=== PATIENT | female | born 1990 | race Caucasian/White ===

== ENCOUNTER → 2023-12-07 08:06 | Outpatient (REF) | payer OTHER, SELFPAY | LOC: PNTC 08:06 | PROVIDERS: ATTENDING PHYSICIAN Obstetrics & Gynecology | DX: Z36.0 Encounter for antenatal screening for chromosomal anomalies (principal); Z36.82 Encounter for antenatal screening for nuchal translucency | CPT/HCPCS: 36415; 76801; 76813 ==

== ENCOUNTER → 2024-01-31 08:18 | Outpatient (REF) | payer OTHER, SELFPAY | LOC: PNTC 08:18 | PROVIDERS: ATTENDING PHYSICIAN Obstetrics & Gynecology | DX: O35.5XX0 Maternal care for (suspected) damage to fetus by drugs, not applicable or unspecified (principal); O09.529 Supervision of elderly multigravida, unspecified trimester; O34.219 Maternal care for unspecified type scar from previous cesarean delivery; Z87.59 Personal history of other complications of pregnancy, childbirth and the puerperium; O99.612 Diseases of the digestive system complicating pregnancy, second trimester | CPT/HCPCS: 76811 ==

== ENCOUNTER → 2024-03-13 13:19 | Outpatient (REF) | payer OTHER, SELFPAY | LOC: PNTC 13:19 | PROVIDERS: ATTENDING PHYSICIAN Obstetrics & Gynecology | DX: O09.529 Supervision of elderly multigravida, unspecified trimester (principal); O34.219 Maternal care for unspecified type scar from previous cesarean delivery | CPT/HCPCS: 76816 ==

== ENCOUNTER → 2024-04-24 08:12 | Outpatient (REF) | payer OTHER, SELFPAY | LOC: PNTC 08:12 | PROVIDERS: ATTENDING PHYSICIAN Obstetrics & Gynecology | DX: O09.529 Supervision of elderly multigravida, unspecified trimester (principal); O34.219 Maternal care for unspecified type scar from previous cesarean delivery; O36.5920 Maternal care for other known or suspected poor fetal growth, second trimester, not applicable or unspecified; O99.612 Diseases of the digestive system complicating pregnancy, second trimester | CPT/HCPCS: 76816 ==

== ENCOUNTER 2024-05-04 20:54 | Observation (INO) | payer OTHER, SELFPAY ==
[2024-05-04 21:25] VITALS: BP 141/88; BMI 29.9
[2024-05-04 21:46] LABS: Urine Albumin Negative (Neg - Trace); Urine Bilirubin Negative (Negative); Urine Character Clear (Clear); Urine Color Straw; Urine Glucose Negative (Negative); Urine Ketone Trace (Negative); Urine Leukocyte Negative (Negative); Urine Nitrite Negative (Negative); Urine Occult Blood Negative (Negative); Urine Specific Gravity 1.015 (<1.030); Urine Urobilinogen Negative (Neg - 1+)
[2024-05-04 22:03] LABS: % Basophils 0.3 % (0-2); % Eosinophils 1.1 % (0-6); % Immature Granulocytes 0.9 % (0-0.5); % Lymphocytes 16.8 % (20.5-51.1); % Monocytes 7.4 % (1.7-9.3); % Neutrophils 73.5 % (42.2-75.2); Absolute Eosinophils 0.2 10^3/uL (0-0.7); Absolute Immature Granulocytes 0.1 10^3/uL (0-0.05); Absolute Lymphocytes 2.4 10^3/uL (1.2-3.4); Absolute Monocytes 1.1 10^3/uL (0.1-0.6); Absolute Neutrophils 10.5 10^3/uL (1.4-6.5); Hematocrit 34.4 % (37.0-47.0); Hemoglobin 12.3 g/dL (12.0-16.0); Mean Corp Hgb Conc. 35.8 g/dL (33.0-37.0); Mean Corpuscular Hgb 28.9 pg (27.0-31.0); Mean Corpuscular Volume 80.8 fL (81.0-99.0); Mean Platelet Volume 9.1 fL (7.4-10.4); Nucleated Red Blood Cells % 0 %; Platelet Count 315 10^3/uL (130-400); Red Blood Cell Count 4.26 10^6/uL (4.20-5.40); Red Cell Dist. Width 12.7 % (11.5-14.5); White Blood Cell Count 14.3 10^3/uL (4.8-10.8)
== END 2024-05-05 09:57 | disposition home or self-care (01) ==
LOC: LDRP 20:54
PROVIDERS: ADMITTING PHYSICIAN Obstetrics & Gynecology; FAMILY PHYSICIAN Family Medicine
DX: O46.93 Antepartum hemorrhage, unspecified, third trimester (principal); Z3A.33 33 weeks gestation of pregnancy; R10.9 Unspecified abdominal pain; O99.613 Diseases of the digestive system complicating pregnancy, third trimester; K50.90 Crohn's disease, unspecified, without complications; O99.343 Other mental disorders complicating pregnancy, third trimester; F41.9 Anxiety disorder, unspecified; G43.909 Migraine, unspecified, not intractable, without status migrainosus; Z87.442 Personal history of urinary calculi; Z88.2 Allergy status to sulfonamides; Z88.8 Allergy status to other drugs, medicaments and biological substances; Z88.5 Allergy status to narcotic agent; Z91.013 Allergy to seafood
CPT/HCPCS: 76815; 81003; 82731; 85025; 85460; 86850; 86900; 86901; 87077; 87086; 87147; G0378

== ENCOUNTER 2024-05-05 20:30 | Inpatient (IN) | payer OTHER, SELFPAY ==
[2024-05-05 20:56] VITALS: BP 143/74; BMI 29.9
[2024-05-05 21:24] LABS: Hematocrit 38.3 % (37.0-47.0); Hemoglobin 13.1 g/dL (12.0-16.0); Mean Corp Hgb Conc. 34.2 g/dL (33.0-37.0); Mean Corpuscular Hgb 29.2 pg (27.0-31.0); Mean Corpuscular Volume 85.3 fL (81.0-99.0); Mean Platelet Volume 9.4 fL (7.4-10.4); Platelet Count 324 10^3/uL (130-400); Red Blood Cell Count 4.49 10^6/uL (4.20-5.40); Red Cell Dist. Width 12.7 % (11.5-14.5); White Blood Cell Count 12.1 10^3/uL (4.8-10.8)
--- NOTE | 2024-05-05 21:37 | CON.NEO ---
Consultation
-
Date/Time Consultation Requested: 05/05/24 at 2130
Date/Time Consultation Performed: 05/05/24 at 2130
Requesting Provider: Dr. Lizarraga
Performing Provider: Dr. Edwards
Reason for Consultation: PROM, premature delivery
Consultation - Neonatology
Maternal Labs
Blood Type: A Positive
Antibody Screen: Negative
RPR: Nonreactive
Rubella: Immune
Hep B S Ag: Negative
Hep C: Negative
HIV: Nonreactive
Group B Strep: Unknown
Chlamydia/GC: Negative
Consult
Points discussed at consult:
- Management at delivery including the possibility of CPAP/intubation/surfactant discussed
- Respiratory: RDS possibility with possibility of worsening for 24-48 hrs, management including CPAP/surfactant/ventilator support may be required
- Nutrition: Hypoglycemia, need for IV fluids, gradual feed advance, Gavage feeding, importance of colostrum feeding, initiation of expression of colostrum within 3-4 hours, availability of donor milk, safety fo donor milk etc. were discussed. Mom
signed consent for donor BM, has plans to breastfeed and was encouraged to pump as soon as possible. She also has a history of overproduction with her 2 year old so is hopeful to have minimal need for donor BM.
- Procedures: Intubation, CPAP, IV placement, blood tests, umbilical arterial or venous lines, gavage feedings were discussed
- [facility]: possibility of PDA not discussed in detail at this time
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
- Jaundice possibility and need for phototherapy discussed
- Family Centered Care: Discussed FCC with emphasis on parental participation during sign off and during management rounds and is encouraged. Availability of nany eyes camera also discussed, parents are well aware of this as their 2 year old
required NICU stay for 4 days due to IUGR.
- COVID-19: Visitation policy, modifications related to COVID-19, ever changing guidelines were discussed
Mom and Dad were given the opportunity to ask questions throughout and open invitation to call if any questions come as they absorb all the information given so far.
Face to Face Time
Total [id number]-[id number] Time (in Minutes): 30
Digitizer
[2024-05-05] MEDS: ANCEF 10 IV (21:53)
[2024-05-05] MEDS: BICITRA 30 ML PO (21:53)
[2024-05-05] MEDS: ZITHROMAX INFUSION 250 IV (21:53)
[2024-05-05] MEDS: TYLENOL 1000 MG PO (21:53)
[2024-05-05 21:55] LABS: ALT (SGPT) 11 U/L (0-35); AST (SGOT) 22 U/L (14-36); Albumin 3.8 g/dl (3.5-5.0); Alkaline Phosphatase 152 U/L (38-126); Blood Urea Nitrogen 8 mg/dl (7-17); Calcium 10.1 mg/dl (8.4-10.2); Carbon Dioxide 19 mmol/L (22-30); Chloride 103 mmol/L (98-107); Estimated Creatinine Clearance > 125 ml/min; Glucose 129 mg/dl (70-99); Potassium 4.1 mmol/L (3.5-5.1); Sodium 137 mmol/L (135-145); Total Bilirubin 0.9 mg/dl (0.2-1.3); eGFR > 60.00
[2024-05-05 22:32] LABS: Protein/creatinine Ratio 0.6; Urine Protein 26 mg/dl
[2024-05-05 23:05] LABS: B.E. Cord ABG -3.6 mMOL/L; Cord ABG Comment CORD BLOOD; HCO3 Cord ABG 24.3 mmol/L; O2 Saturation % Cord ABG 30.2 %; PCO2 Cord ABG 53 mmHg; PO2 Cord ABG 15 mmHg; pH Cord ABG 7.27
[2024-05-05 23:10] LABS: B.E. Cord ABG -3.3 mMOL/L; HCO3 Cord ABG 25.4 mmol/L; O2 Saturation % Cord ABG 12.7 %; PCO2 Cord ABG 58 mmHg; PO2 Cord ABG 7 mmHg; pH Cord ABG 7.25
[2024-05-06 00:20] LABS: Protein/creatinine Ratio 0.3; Urine Protein 27 mg/dl
[2024-05-06] MEDS: DILAUDID 0.25 MG IV ×2 (00:46→01:24)
[2024-05-06] MEDS: PERCOCET 5/325 1 TABLET PO ×2 (03:02→06:54)
[2024-05-06 06:09] LABS: Hematocrit 32.8 % (37.0-47.0); Hemoglobin 11.2 g/dL (12.0-16.0); Mean Corp Hgb Conc. 34.1 g/dL (33.0-37.0); Mean Corpuscular Hgb 28.4 pg (27.0-31.0); Mean Platelet Volume 9.1 fL (7.4-10.4); Platelet Count 295 10^3/uL (130-400); Red Blood Cell Count 3.95 10^6/uL (4.20-5.40); Red Cell Dist. Width 12.7 % (11.5-14.5); White Blood Cell Count 19.8 10^3/uL (4.8-10.8)
[2024-05-06] MEDS: PRENATAL PLUS 1 TABLET PO (07:44)
[2024-05-06] MEDS: DILAUDID 2 MG PO ×3 (11:15→17:15)
[2024-05-06] MEDS: SENOKOT-S 1 TABLET PO (15:13)
--- NOTE | 2024-05-06 20:38 | W.PN.ANS.POP ---
Anesthesia Post Operative
- Anesthesia Post Op Note
Vital Signs Stable-See Nursing Note: Yes
Airway Patent: Yes
Adequate Pain Control: Yes
Change in Mental Status: No
Current Postoperative Nausea & Vomiting: No
Anesthesia Complications: No
General Anesthetic Recall: No
Unplanned Admission: No
Post Op Hydration Adequate: Yes
[2024-05-06] MEDS: DILAUDID 4 MG PO (21:18)
[2024-05-07] MEDS: DILAUDID 4 MG PO ×3 (01:18→09:16)
[2024-05-07] MEDS: SENOKOT-S 1 TABLET PO (08:23)
[2024-05-07] MEDS: PRENATAL PLUS 1 TABLET PO (08:23)
[2024-05-07] MEDS: PEPCID 10 MG PO (08:23)
[2024-05-07] MEDS: MYLICON 80 MG PO ×2 (13:13→17:15)
[2024-05-07] MEDS: PERCOCET 5/325 2 TABLET PO ×3 (13:17→21:13)
[2024-05-08] MEDS: PERCOCET 5/325 2 TABLET PO ×5 (01:07→19:49)
[2024-05-08] MEDS: SENOKOT-S 1 TABLET PO (08:58)
[2024-05-08] MEDS: PRENATAL PLUS 1 TABLET PO (08:58)
[2024-05-08] MEDS: PEPCID 10 MG PO (08:58)
[2024-05-09] MEDS: PERCOCET 5/325 2 TABLET PO ×3 (03:28→13:10)
[2024-05-09] MEDS: PEPCID 10 MG PO (08:10)
[2024-05-09] MEDS: PRENATAL PLUS 1 TABLET PO (08:12)
[2024-05-09] MEDS: SENOKOT-S 1 TABLET PO (08:17)
--- NOTE | 2024-05-09 13:13 | W.DS.TRANS ---
DC Summary - [facility]
-
Discharge Instructions:
Discharge Diagnosis/Procedures section
Instructions:
Stand-Alone Forms: LDRP Delivery
Changes to Home Medications: No
Discharge Medications:
DC Medications w/original date entered in [email or web address]
famotidine 10 mg tablet (Pepcid AC) 10 mg PO DAILY Gastrointestinal Issue 05/04/24
prenat.vits,doris,iiy-eurv-tuacw 1 tab PO DAILY Supplement 05/04/24
acetaminophen 325 mg tablet 650 mg (2 x 325 mg) PO Q4HPRN PRN mild pain #0 tabs 05/08/24
oxycodone-acetaminophen 5 mg-325 mg tablet 1 tab PO Q4HPRN PRN moderate pain #12 tabs 05/08/24
sennosides 8.6 mg-docusate sodium 50 mg tablet 1 tab PO DAILYPRN PRN constipation #0 tabs 05/08/24
simethicone 80 mg chewable tablet 80 mg PO TIDPRN PRN flatulence #0 tabs 05/08/24
Home Medication Changes
Pending Results: No
[2024-05-09 15:43] LABS: Syphilis/T. pallidum Ab Reflex Negative (Negative)
== END 2024-05-09 15:24 | disposition home or self-care (01) | DRG 787 ==
LOC: LDRP 20:30
PROVIDERS: ADMITTING PHYSICIAN Obstetrics & Gynecology; ATTENDING PHYSICIAN Obstetrics & Gynecology; FAMILY PHYSICIAN Family Medicine
PROC: 10D00Z1 Extraction of Products of Conception, Low, Open Approach (ICD-10-PCS; 2024-05-05)
DX: O34.211 Maternal care for low transverse scar from previous cesarean delivery (principal); K50.90 Crohn's disease, unspecified, without complications; O99.344 Other mental disorders complicating childbirth; F41.9 Anxiety disorder, unspecified; O99.62 Diseases of the digestive system complicating childbirth; O42.913 Preterm premature rupture of membranes, unspecified as to length of time between rupture and onset of labor, third trimester; O99.892 Other specified diseases and conditions complicating childbirth; R03.0 Elevated blood-pressure reading, without diagnosis of hypertension; O99.893 Other specified diseases and conditions complicating puerperium; M54.9 Dorsalgia, unspecified; R05.9 Cough, unspecified; Z3A.34 34 weeks gestation of pregnancy; Z37.0 Single live birth; Z79.899 Other long term (current) drug therapy; Z88.8 Allergy status to other drugs, medicaments and biological substances
CPT/HCPCS: 88307; 80053; 82570; 82803; 84156; 85027; 86780; 86850; 86900; 86901; 87070; 87077; 87147; 93971

== ENCOUNTER → 2024-05-16 12:54 | Outpatient (REF) | payer OTHER, SELFPAY | LOC: WDC 12:54 | PROVIDERS: ATTENDING PHYSICIAN Obstetrics & Gynecology; FAMILY PHYSICIAN Family Medicine | DX: N63.31 Unspecified lump in axillary tail of the right breast (principal); N63.32 Unspecified lump in axillary tail of the left breast | CPT/HCPCS: 76642 ==

== ENCOUNTER 2024-07-15 14:30 | Observation (INO) | payer OTHER, SELFPAY ==
[2024-07-15 09:27] VITALS: BP 128/91
[2024-07-15 09:53] VITALS: BMI 27.7
[2024-07-15] MEDS: NSS 500 IV (09:59)
[2024-07-15] MEDS: DILAUDID 0.5 MG IV ×4 (10:00→15:55)
[2024-07-15] MEDS: TORADOL 15 MG IV ×2 (10:00→12:57)
[2024-07-15 10:03] LABS: % Basophils 0.4 % (0-2); % Eosinophils 2.1 % (0-6); % Immature Granulocytes 0.3 % (0-0.5); % Lymphocytes 27.2 % (20.5-51.1); % Monocytes 6.8 % (1.7-9.3); % Neutrophils 63.2 % (42.2-75.2); Absolute Eosinophils 0.2 10^3/uL (0-0.7); Absolute Lymphocytes 2.5 10^3/uL (1.2-3.4); Absolute Monocytes 0.6 10^3/uL (0.1-0.6); Absolute Neutrophils 5.8 10^3/uL (1.4-6.5); Hematocrit 41.2 % (37.0-47.0); Hemoglobin 13.7 g/dL (12.0-16.0); Mean Corp Hgb Conc. 33.3 g/dL (33.0-37.0); Mean Corpuscular Hgb 27.3 pg (27.0-31.0); Mean Corpuscular Volume 82.2 fL (81.0-99.0); Mean Platelet Volume 8.2 fL (7.4-10.4); Nucleated Red Blood Cells % 0 %; Platelet Count 320 10^3/uL (130-400); Red Blood Cell Count 5.01 10^6/uL (4.20-5.40); Red Cell Dist. Width 14.3 % (11.5-14.5); White Blood Cell Count 9.2 10^3/uL (4.8-10.8)
[2024-07-15 10:20] LABS: HCG, Serum Qualitative Screen Negative
--- NOTE | 2024-07-15 10:26 | ED.GENMED ---
History of Present Illness
General
Chief Complaint: Musculo-Skeletal Complaint
Source: patient and family
Exam Limitations: none
Time Seen by Provider: 07/15/24 09:38
History of Present Illness
History of Present Illness:
34-year-old female complaining of left posterior neck pain with shooting pain down the left arm. Started 5 days ago. No trauma. Patient is 10 weeks and had some mild left-sided neck pain at times while sleeping on the couch but
relatively brief. Did have chiropractic manipulation x 2 this week. No unusual headache vomiting photophobia or other neurologic symptoms. Very positional in nature.
Past History
Past History
ED Past Medical History: Hyperthyroidism, Other (Migraines, Crohn's disease, kidney stones, ovarian cyst) and Other (Crohn's disease, kidney stones, ovarian cyst, UTIs, tonsil and adenoidectomy, rectal fissure at distal repair, small bowel
resection for Crohn's)
ED Past Surgical History: Bowel resection (11 inches from small bowel and 2 inches from large bowel) and Other; Negative Appendectomy
Social History
Tobacco: Non-smoker
Alcohol: None
Drug: None
Personal: Single
Living: with family
Employment: Employed
Family History
Family History: CAD
Review of Systems
Review of Systems
All Other Systems: Not applicable
Constitutional: Denies fever or chills
Neurological: Denies weakness
Phy Exam
Physical Exam
Physical Exam:
GENERAL: Alert and oriented in no apparent distress, sitting up on the side of the bed. Does appear uncomfortable however. Self splinting the neck. Holding the neck slightly angulated
EYE: Orbits normal.
NECK: Decreased lateral rotation and left posterior paracervical tenderness.
ENT: Pharynx without erythema
CARDIAC: Regular rate and rhythm
LUNGS: No respiratory distress
NEUROLOGICAL: Alert and oriented , hearth feeder normal. Interosseous intact. Light touch intact. Lower extremity strength normal
SKIN: Warm and dry
PSYCH: Normal and appropriate interaction.
Course
Orders/Labs/Results
Orders:
Orders
07/15/24 09:48
IV Insert/Care/Rem.- Treatment PRN
0.9% Sodium Chloride 500 ml [Nss] 500 ml IV BOLUS
Ketorolac [Toradol] 15 mg IV NOW STA
07/15/24 09:50
Test Result ONCE
07/15/24 09:51
CT Neck Angio W/wo Iv Contrast Urgent
Comment:
Reason For Exam: Neck pain/chiropractic manipulation
HYDROmorphone [Dilaudid] 0.5 mg IV NOW STA
07/15/24 09:57
Basic Metabolic Panel Urgent
Complete Blood Count/With Diff Urgent
HCG, Serum Qualitative Screen Urgent
07/15/24 11:24
HYDROmorphone [Dilaudid] 0.5 mg IV NOW STA
07/15/24 12:38
Electrocardiogram (*1) Stat
Reason for Study: Other
Other Reason for Exam: chest pain
EKG- Treatment ONCE
CXR2 [CR Chest - 2 Views ] Urgent
Comment:
Reason For Exam: left upper back pain
07/15/24 12:39
Ketorolac [Toradol] 15 mg IV NOW STA
07/15/24 13:43
HYDROmorphone [Dilaudid] 0.5 mg .ROUTE .STK-MED ONE
HYDROmorphone [Dilaudid] 0.5 mg IV NOW STA
07/15/24 14:22
Admit/Transfer Patient As Directed
Co-Sign Provider:
Level of Care: Observation services
Assign to:: Medical/Surgical
Physician / Group: anish
Diagnosis: cervical radiculopathy
Code Status As Directed
Resuscitation Status: Full Code
PRN Pain Medication Management As Directed
May give lesser potent ordered pain med per pt: Yes
preference::
Protocol:: Medication orders for pain may be administered in a
manner that supports deferring to patient preference
when the pt is:
- Requesting an ordered lesser potent pain medication.
Least to most potent pain medications are defined
as: acetaminophen < NSAID < tramadol < opioids
(morphine, oxycodone, hydromorphone).
- Requesting a lesser dose of the same medication IF
ORDERED.
- Requesting a less intrusive route of administration
if both routes are prescribed by the provider (PO <
IV).
07/15/24 Dinner
Regular
At Your Request: Full Participation
07/15/24 15:49
Acetaminophen [Tylenol] 1,000 mg PO Q6HPRN PRN
Cyclobenzaprine HCl [Flexeril] 5 mg PO Q8HPRN PRN
Oxycodone [Roxicodone] 5 mg PO Q4HPRN PRN
07/15/24 15:49
Activity As Directed
Activity Level: As Tolerated
Pneumatic Compression Sleeves As Directed
Type: Knee high
Vital Signs As Directed
Frequency: Per unit guidelines
Ot Eval And Treat Routine
PT Consult [Pt Eval And Treat] Routine
Activity Level: As Tolerated
DX Deep Vein Thrombosis Video Routine
07/15/24 15:56
Prednisone [Deltasone] 60 mg PO DAILY
07/16/24 05:54
Complete Blood Count/With Diff IN AM
Comprehensive Metabolic Panel IN AM
07/16/24 08:00
MULTIPLE VITAMIN w/FE [ Plus] 1 tablet PO DAILY
Abnormal Lab Results
07/15/24
09:57
Chloride 108 H mmol/L
(98-107)
Carbon Dioxide 18 L mmol/L
(22-30)
BUN 18 H mg/dl
(7-17)
07/15/24 09:57
07/15/24 09:57
Vital Signs
Initial and Last Documented VS:
Initial Vital Signs
Temp Pulse Resp BP Pulse Ox
98.5 F 77 18 128/91 98
07/15/24 09:27 07/15/24 09:27 07/15/24 09:27 07/15/24 09:27 07/15/24 09:27
Last Documented Vital Signs
Temp Pulse Resp BP Pulse Ox
97.8 F 59 14 113/63 97
07/16/24 07:42 07/16/24 07:42 07/16/24 07:42 07/16/24 07:42 07/16/24 07:42
MDM/Problems Addressed
Differential Diagnosis Includes:
34-year-old female nontraumatic left-sided neck pain with radiculopathy like symptoms. Most consistent with nerve impingement. However no acute weakness. But because of the chiropractic vein ablation, we will pursue CT angio of the neck.
Symptomatic treatment and pain management.
*Radiology
Radiology exam reviewed: preliminary read by ED provider (Negative x-ray) and radiology read reviewed (Angiography negative. Degenerative changes C5-C6 c7)
*Pulse Oximetry
Patient hypoxic: no
*EKG
Interpreted by ED Provider?: Yes
Comparison EKG: changes noted
Heart Rate: 55
Rate: bradycardiac
Rhythm: sinus and sinus arrhythmia
[place]: normal axis
Interval: normal interval
QRS Pattern: normal QRS
Ischemia: no ischemia
*Critical Care Note
Total Time (30-74mins, 75-104mins- exclusive of procedures): Not Applicable
Data Reviewed
Review of Other/Old Records Reveals: Labs, Records and Testing
ED Attending Note
-
Portions of this chart may have been created with voice recognition software.� Occasional wrong word or��sound alike� substitutions may have occurred due to the inherent limitations of voice recognition software.
Discharge Plan
Departure
Patient Disposition: Admit
Date of Disposition: 07/15/24
Time of Disposition: 14:12
Presentation/result/management discussed w/ accepting MD/DO: Hospitalist
Discharge Problem:
Intractable pain, Intractable suspect cervical radiculopat
Interventions
Interventions:
*Risk Screen - Suicide Last Done: 07/15/24 16:43
*General Assessment Last Done: 07/15/24 09:27
*Neglect/Abuse Screening Last Done: 07/15/24 09:27
ED- Fall Risk Assessment Last Done: 07/15/24 09:53
*ED COVID-19 Vaccine History Last Done: 07/15/24 16:43
*Nursing Disposition Last Done: 07/15/24 15:38
ED-Musculoskeletal Assessment Last Done: 07/15/24 09:53
Discharge Date and Time
Discharge Date/Time: 07/15/24 15:40
[2024-07-15 10:28] LABS: Blood Urea Nitrogen 18 mg/dl (7-17); Carbon Dioxide 18 mmol/L (22-30); Chloride 108 mmol/L (98-107); Estimated Creatinine Clearance 107 ml/min; Glucose 86 mg/dl (70-99); Potassium 4.1 mmol/L (3.5-5.1); Sodium 143 mmol/L (135-145); eGFR > 60.00
[2024-07-15 11:28] VITALS: BP 130/79
[2024-07-15 12:00] VITALS: BP 116/69
[2024-07-15 14:00] VITALS: BP 132/86
--- NOTE | 2024-07-15 14:28 | HPS.HSE ---
Family Physician
-
Family Physician: Kwasi Beltran
Chief Complaint
-
back pain
History of Present Illness
34-year-old female past medical history of hypothyroidism, Crohn's disease status post small bowel resection, migraines, kidney stones, gestational hypertension, rectal fissure, ovarian cyst, anxiety, eczema presenting for sharp left posterior upper
back pain shooting down the left arm to her 1st through 3rd fingers associate with tingling and weakness the fingers. Pain started 5 days ago. She is 10 weeks and has been carrying the baby a lot. She had similar symptoms with her
prior child. She denies any trauma. She has been sleeping on the couch.
She has been taking Tylenol and ibuprofen for pain although ibuprofen irritates her stomach due to history of Crohn's disease. She was started on Medrol Dosepak 4 days ago. She did take a dose of Flexeril which did not help.
She had chiropractic manipulation times this week without improvement.
Patient denies smoking or alcohol use.
Medical History
Past Medical History
Past Medical History: Reports Other ( hypothyroidism, Crohn's disease status post small bowel resection, migraines, kidney stones, gestational hypertension, rectal fissure, ovarian cyst, anxiety, eczema)
Past Surgical History: Reports Other ( Bowel resection (11 inches from small bowel and 2 inches from large bowel))
Social History
Tobacco: Non-smoker
Alcohol: None
Drug: None
Family History
Family History: Not pertinent
Allergies / Home Medications
Allergies reflects when Allergies were last updated in [employer].
Home Medications with original date entered in [employer]
Allergy/Medication List:
Allergies
Allergy/AdvReac Type Severity Reaction Status Date / Time
infliximab [From Remicade] Allergy hives, Verified 07/15/24 09:27
rash,
joint
swelling
morphine [Morphine] Allergy Hives at Verified 07/15/24 09:27
IV site
naproxen [From Naprosyn] Allergy contraindicated Verified 07/15/24 09:27
because of
Crohn's
prochlorperazine edisylate Allergy THROAT Verified 07/15/24 09:27
[From Compazine] CLOSES
rizatriptan benzoate Allergy HTN, chest Verified 07/15/24 09:27
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
pain
Shellfish *RETIRED-05/31/12 Allergy Anaphylaxis Verified 07/15/24 09:27
[Shellfish]
sulfamethoxazole Allergy Hives Verified 07/15/24 09:27
[From Bactrim]
trimethoprim [From Bactrim] Allergy Hives Verified 07/15/24 09:27
Home Medications
1 tab PO DAILY 07/15/24
ibuprofen 200 mg tablet (Advil) 400 mg PO Q6HPRN PRN mild pain 07/15/24
Review of Systems
-
History Source: Patient
A 12 point ROS was completed and negative except as noted: Yes
Constitutional: Reports No Symptoms
EENT: Reports No Symptoms
Respiratory: Reports No Symptoms
Cardiac: Reports No Symptoms
Abdomen/GI: Reports No Symptoms
: Reports No Symptoms
Musculoskeletal: Reports No Symptoms
Skin: Reports No Symptoms
Neurological: Reports No Symptoms
Endocrine: Reports No Symptoms
Hematologic/Lymphatic: Reports No Symptoms
Psych: Reports No Symptoms
Physical Exam
Vital Signs
Vital Signs
Temp Pulse Resp BP Pulse Ox
98.5 F 63 9 116/69 97
07/15/24 09:27 07/15/24 12:15 07/15/24 12:15 07/15/24 12:00 07/15/24 12:15
Physical Exam
General: Well Developed, Well Nourished and No Apparent Distress
HEENT: NormoCephalic, Moist mucous membranes and Atraumatic
Respiratory: Clear
Cardiac: S1/S2 and Regular Rhythm; No Murmur or Rub
GI: Soft, Non Tender, Non Distended and Normal Bowel Sounds; No Organomegaly
Rectal: Deferred by Provider
Musculoskeletal: No Clubbing, No Cyanosis and No Edema
Skin: No Rash
Neuro: Nonfocal/grossly intact
Laboratory Results
-
07/15/24 09:57
07/15/24 09:57
Data Reviewed
-
Lab Data: Labs Reviewed by me
Old Records: Reviewed
Impression/Plan
-
IMPRESSION:
PLAN:
# Left sided cervical radiculopathy secondary to C5-C6 spinal stenosis triggered by /holding baby
-CTA neck otherwise unremarkable
-Ketorolac, Dilaudid given in ER
-Switch Medrol Dosepak to prednisone 60 mg for 5 days followed by taper
-Tylenol for mild pain, oxycodone for severe pain and try to avoid ibuprofen due to history of Crohn's disease and steroids
-Flexeril as needed
-PT/OT
Hypothyroidism
Crohn's disease status post bowel resection
History of migraine
History of kidney stones
Gestational hypertension
History of rectal fissure
Ovarian cyst
Anxiety
Eczema
Full code
DVT prophylaxis�SCDs
Regular diet
[2024-07-15 16:03] VITALS: BP 135/85
[2024-07-15] MEDS: TYLENOL 1000 MG PO ×2 (16:40→23:10)
[2024-07-15] MEDS: ROXICODONE 5 MG PO (16:41)
[2024-07-15] MEDS: DELTASONE 60 MG PO (17:07)
[2024-07-15] MEDS: FLEXERIL 5 MG PO (18:17)
[2024-07-15] MEDS: DILAUDID 1 MG IV ×2 (18:58→22:58)
[2024-07-15 23:06] VITALS: BP 106/60
[2024-07-16] MEDS: FLEXERIL 5 MG PO ×2 (01:17→10:12)
[2024-07-16] MEDS: TORADOL 15 MG IV (01:58)
[2024-07-16] MEDS: DILAUDID 1 MG IV ×2 (02:18→06:24)
[2024-07-16] MEDS: TYLENOL 1000 MG PO ×2 (05:56→11:53)
[2024-07-16 06:35] LABS: % Basophils 0.2 % (0-2); % Immature Granulocytes 0.9 % (0-0.5); % Lymphocytes 13.3 % (20.5-51.1); % Monocytes 3.8 % (1.7-9.3); % Neutrophils 81.8 % (42.2-75.2); Absolute Immature Granulocytes 0.1 10^3/uL (0-0.05); Absolute Lymphocytes 1.4 10^3/uL (1.2-3.4); Absolute Monocytes 0.4 10^3/uL (0.1-0.6); Absolute Neutrophils 8.7 10^3/uL (1.4-6.5); Hematocrit 38.4 % (37.0-47.0); Hemoglobin 12.9 g/dL (12.0-16.0); Mean Corp Hgb Conc. 33.6 g/dL (33.0-37.0); Mean Corpuscular Hgb 28.5 pg (27.0-31.0); Mean Platelet Volume 8.6 fL (7.4-10.4); Nucleated Red Blood Cells % 0 %; Platelet Count 324 10^3/uL (130-400); Red Blood Cell Count 4.52 10^6/uL (4.20-5.40); Red Cell Dist. Width 14.1 % (11.5-14.5); White Blood Cell Count 10.6 10^3/uL (4.8-10.8)
[2024-07-16 07:03] LABS: ALT (SGPT) 27 U/L (0-35); AST (SGOT) 22 U/L (14-36); Albumin 4.1 g/dl (3.5-5.0); Alkaline Phosphatase 88 U/L (38-126); Blood Urea Nitrogen 16 mg/dl (7-17); Calcium 9.7 mg/dl (8.4-10.2); Carbon Dioxide 20 mmol/L (22-30); Chloride 108 mmol/L (98-107); Estimated Creatinine Clearance 122 ml/min; Glucose 99 mg/dl (70-99); Potassium 4.6 mmol/L (3.5-5.1); Sodium 142 mmol/L (135-145); Total Bilirubin 1.3 mg/dl (0.2-1.3); eGFR > 60.00
[2024-07-16 07:42] VITALS: BP 113/63
[2024-07-16] MEDS: PRENATAL PLUS 1 TABLET PO (08:15)
[2024-07-16] MEDS: DELTASONE 60 MG PO (08:15)
[2024-07-16] MEDS: ROXICODONE 10 MG PO (08:43)
--- NOTE | 2024-07-16 10:24 | CM ---
CM reviewed chart and PT recs. Pt from home w/spouse and dependent children. Iw/AMB and ADLs at baseline and has no skilled discharge planning needs noted at this time. Family to transport when medically cleared.
Pt is clear to dc from a CM/SW standpoint.
--- NOTE | 2024-07-16 10:30 | W.PN.HOSP.TC ---
Addendum entered and electronically signed by Eileen Ford MD 07/16/24 12:46:
Total DC time 40 minutes
Original Note:
Today's Communication/Plan
-
see A/P
Assessment / Plan
Assessment / Plan
HPI: 34-year-old female past medical history of hypothyroidism, Crohn's disease status post small bowel resection, migraines, kidney stones, gestational hypertension, rectal fissure, ovarian cyst, anxiety, eczema; presented for sharp left posterior
upper back pain shooting down the left arm to her 1st through 3rd fingers associate with tingling and weakness the fingers. 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 She is 10 weeks and has been carrying the baby a lot. She had similar symptoms with her
prior child. She denies any trauma. She has been sleeping on the couch.
She has been taking Tylenol and ibuprofen for pain although ibuprofen irritates her stomach due to history of Crohn's disease. 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 She did take a dose of Flexeril which did not help.
She had chiropractic manipulation several times without improvement.
Patient denies smoking or alcohol use.
A/P:
# Left sided cervical radiculopathy secondary to C5-C6 spinal stenosis triggered by /holding baby
CTA neck otherwise unremarkable
s/p Ketorolac, Dilaudid given in ER
Switch Medrol Dosepak to prednisone, will discharge with 40 mg with taper
Cont Tylenol for mild pain informed to take ATC, oxycodone for severe pain.
Pt declined ibuprofen due to history of Crohn's disease
Change Flexeril to tizanidine PRN (pt reports Flexeril is ineffective)
Informed she can try trial of lidocaine gel, Salonpas and massage gun to relieve muscle tension
PT/OT: no skilled needed
# Hypothyroidism
# Crohn's disease status post bowel resection
# History of migraine
# History of kidney stones
# Gestational hypertension
# History of rectal fissure
# Ovarian cyst
# Anxiety
# Eczema
Full code
DVT prophylaxis�SCDs
Regular diet
DW RN
Anticipated Discharge: Today
Subjective/Interval History
-
Date of Service: July 16, 2024
Objective Data
-
Labs:
Laboratory Results
07/16/24
05:54
WBC 10.6
Hgb 12.9
Hct 38.4
Plt Count 324
Sodium 142
Potassium 4.6
Chloride 108 H
Carbon Dioxide 20 L
BUN 16
Creatinine 0.7
Glucose 99
Calcium 9.7
Total Bilirubin 1.3
AST 22
ALT 27
Alkaline Phosphatase 88
Vital Signs:
Vital Signs
Temp Pulse Resp BP Pulse Ox
36.6 C 59 14 113/63 97
07/16/24 07:42 07/16/24 07:42 07/16/24 07:42 07/16/24 07:42 07/16/24 07:42
I&O
07/15/24 07/16/24 07/17/24
07:59 06:59 06:59
Intake Total
Balance
Review of Systems
-
Musculoskeletal: Reports Muscle Pain (upper back )
Neuro: Reports Numbness (index and third finger )
Physical Exam
-
General: Well Developed, Well Nourished, No Apparent Distress, Comfortable and Conversant; Negative Respiratory Distress
HEENT: Normocephalic, Atraumatic, Nose Appears Normal and Ears Appear Normal; Negative Oxygen
Respiratory: Non Labored Respirations; Negative Accessory Resp Muscle Use
Cardiac: Regular Rhythm and S1/S2
GI: Soft, Nontender, Nondistended and Normal Bowel Sounds
Skin: Warm and Dry
Neuro: Awake, Alert, Oriented, AO x 3 and Nonfocal/Grossly Intact
Psych: Calm and Intact Judgement/Insight
Data Reviewed
-
CT Scan: Report Reviewed by me
Labs: Labs Reviewed by me
[2024-07-16 11:43] VITALS: BP 133/87
--- NOTE | 2024-07-16 12:14 | W.DCSUMMARY ---
Discharge Summary
Discharge Data
Date of Admission: 07/15/24
Date of Discharge: 07/16/24
-
Pending Results: No
Hospital Course
Principal Diagnosis:
Left sided cervical radiculopathy secondary to C5-C6 spinal stenosis triggered by /holding baby
Chronic Diagnoses:�
Hypothyroidism
Crohn's disease status post bowel resection
History of migraine
History of kidney stones
Gestational hypertension
History of rectal fissure
Ovarian cyst
Anxiety
Consultations:�
None
Procedures:�
None
Clinical course:�
This is a 34-year-old female with past medical history as stated above, of note she is 10 weeks and has been carrying her baby a lot. She presented with sharp left posterior upper back pain with radiation down to the posterior left arm
and forearm through to her index and third fingers. She was started with Medrol pack without significant improvement.
Problem 1:
Left sided cervical radiculopathy secondary to C5-C6 spinal stenosis triggered by /holding a baby.
Her CTA neck was unremarkable.
She preferred no ibuprofen for pain control due to her Crohn's disease.
She received IV Dilaudid while in the hospital and was discharged with oxycodone 10 mg as needed.
She can continue Tylenol [id number].
She was also prescribed lidocaine gel for local pain control.
She was started with Medrol Dosepak outpatient, and was discharged with prednisone to continue tapering.
The patient stated that Flexeril did not relieve her muscle spasm, so she was discharged with tizanidine as needed.
She can continue outpatient OT for upper back/neck pain.
As for the rest of her medical problems, they were stable during her hospital stay.
Discharge Plan
-
Patient Disposition: Home (Routine Discharge)
Discharge Diagnosis/Procedures: Left sided cervical radiculopathy secondary to C5-C6 spinal stenosis triggered by /holding baby
Condition: Good
Diet: As tolerated
Activity: As tolerated
Driving Restrictions: Not until seen by your Dr
Referrals:
Kwasi Beltran, DO [Family Provider] - in less than 1 week
Prescriptions:
New
oxycodone 10 mg Tablet
10 mg PO Q4HPRN PRN (Reason: mod pain) Qty: 7 0RF
acetaminophen [Tylenol] 325 mg capsule
650 mg PO TID 5 Days Qty: 30 0RF
lidocaine 5 % gel
1 ea topical TID Qty: 30 2RF
prednisone 10 mg Tablet
See Rx Instructions .ROUTE .COMPLEX Qty: 45 0RF
Rx Instructions:
Take By Mouth:
50 mg daily x3 days, 40 mg daily x3 days,
30 mg daily x3 days, 20 mg daily x3 days,
10 mg daily x3 days
tizanidine 2 mg capsule
2 mg PO HS PRN (Reason: muscle spasticity) Qty: 7 0RF
Continued
1 tab PO DAILY
Discontinued
ibuprofen [Advil] 200 mg Tablet
400 mg PO Q6HPRN PRN (Reason: mild pain)
Discharge Orders:
Discharge Patient (As Directed); Ordered 07/16/24
Ordered By: Eileen Ford
Discharge Date and Time
Print Language: BURMESE
== END 2024-07-16 12:00 | disposition home or self-care (01) ==
LOC: 2 SOUTH 14:30
PROVIDERS: ADMITTING PHYSICIAN Hospitalist; ATTENDING PHYSICIAN Internal Medicine; EMERGENCY PHYSICIAN Emergency Medicine; FAMILY PHYSICIAN Family Medicine
DX: M54.12 Radiculopathy, cervical region (principal); M48.02 Spinal stenosis, cervical region; M54.2 Cervicalgia; M79.602 Pain in left arm; K50.90 Crohn's disease, unspecified, without complications; N83.209 Unspecified ovarian cyst, unspecified side; R07.9 Chest pain, unspecified; M54.6 Pain in thoracic spine; E03.9 Hypothyroidism, unspecified; I49.8 Other specified cardiac arrhythmias; R00.1 Bradycardia, unspecified; F41.9 Anxiety disorder, unspecified; R53.1 Weakness; L30.9 Dermatitis, unspecified; Z88.8 Allergy status to other drugs, medicaments and biological substances; Z87.440 Personal history of urinary (tract) infections; Z87.442 Personal history of urinary calculi; Z90.49 Acquired absence of other specified parts of digestive tract; Z82.49 Family history of ischemic heart disease and other diseases of the circulatory system; Z88.5 Allergy status to narcotic agent; Z88.6 Allergy status to analgesic agent
CPT/HCPCS: 70498; 71046; 80048; 80053; 84703; 85025; 93005; 96361; 96374; 96375; 96376; 97161; 99285; G0378; Q9967

== ENCOUNTER 2024-08-11 16:34 | Inpatient (IN) | payer OTHER, SELFPAY ==
[2024-08-11 10:44] VITALS: BP 141/86
--- NOTE | 2024-08-11 12:07 | ED.GENMED ---
History of Present Illness
<Jose Miguel Savage PA-C - Last Filed: 08/11/24 15:49>
General
Chief Complaint: Fever
Time Seen by Provider: 08/11/24 11:18
History of Present Illness
History of Present Illness:
Patient is a 34-year-old female with past medical history of Crohn's disease, IBS, and migraine disorder, currently approximately 14 weeks, here today with concerns for mastitis with possible breast abscess. Patient states over the past
couple of days she has been having progressively worsening breast redness/pain. Symptoms initially began on the right breast but have now progressed along the left breast. She feels she also has a possible abscess along her left breast. No
drainage noted. She does report fevers and myalgias. She contacted her TACTICAL/MOBILE WATCH OFFICER and was started on dicloxacillin x 48 hours. She was told if symptoms did not improve to seek evaluation in the emergency department.
Past History
<Jose Miguel Savage PA-C - Last Filed: 08/11/24 15:49>
Past History
ED Past Medical History: Hyperthyroidism, Other (Migraines, Crohn's disease, kidney stones, ovarian cyst) and Other (Crohn's disease, kidney stones, ovarian cyst, UTIs, tonsil and adenoidectomy, rectal fissure at distal repair, small bowel
resection for Crohn's)
ED Past Surgical History: Bowel resection (11 inches from small bowel and 2 inches from large bowel) and Other; Negative Appendectomy
Social History
Tobacco: Non-smoker
Alcohol: None
Drug: None
Personal: Single
Living: with family
Employment: Employed
Family History
Family History: CAD
Review of Systems
<Jose Miguel Savage PA-C - Last Filed: 08/11/24 15:49>
Review of Systems
All Other Systems: ROS reviewed and negative except as documented in HPI and ROS
Phy Exam
<Jose Miguel Savage PA-C - Last Filed: 08/11/24 15:49>
Physical Exam
Physical Exam:
GENERAL: Alert , in no apparent distress
EYE: pupils equal and reactive
NECK: Supple
BREAST: Exam performed with female rooming house operator in room. Mild nonspecific mildly tender faint erythema along the bilateral breast predominantly along the superior region. Along the left upper middle breast at approximately 12:00 there are small
palpable tender masses noted. No fluctuance or drainage. No central pustule
NEUROLOGICAL: Alert and oriented, no focal neuro deficits
SKIN: Warm and dry, skin intact.
MUSCULOSKELETAL: No edema, well perfused.
PSYCH: Normal and appropriate interaction.
Course
<Jose Miguel Savage PA-C - Last Filed: 08/11/24 15:49>
Orders/Labs/Results
Orders:
Orders
08/11/24 12:21
Basic Metabolic Panel Urgent
Complete Blood Count/With Diff Urgent
08/11/24 12:57
Acetaminophen [Tylenol] 1,000 mg PO NOW STA
08/11/24 13:22
US Breast Bilateral Ltd WDC Urgent
Reason for Exam: CONCERN FOR POSS ABCESS, LEFT BREAST
08/11/24 14:59
CefTRIAXone [Rocephin] 2,000 mg IV NOW STA
08/11/24 15:12
Vancomycin [Vancocin] 1,250 mg 0.9% Sodium Chloride 250 ml [Nss] 250 ml IV NOW
08/11/24 16:00
Flush (0.9% Sodium Chloride) [Flush (Nss)] See Dose Instructions IV PER PROTOCOL
Abnormal Lab Results
08/11/24
12:21
MCHC 32.5 L g/dL
(33.0-37.0)
Monocytes % 11.0 H %
(1.7-9.3)
08/11/24 12:21
08/11/24 12:21
Vital Signs
Initial and Last Documented VS:
Initial Vital Signs
Temp Pulse Resp BP Pulse Ox
98 F 86 16 141/86 100
08/11/24 10:44 08/11/24 10:44 08/11/24 10:44 08/11/24 10:44 08/11/24 10:44
Last Documented Vital Signs
Temp Pulse Resp BP Pulse Ox
98 F 75 16 110/78 98
08/11/24 10:44 08/11/24 12:15 08/11/24 12:26 08/11/24 12:13 08/11/24 12:15
<Og Smith, DO - Last Filed: 08/11/24 14:43>
Orders/Labs/Results
Orders:
Orders
08/11/24 12:21
Basic Metabolic Panel Urgent
Complete Blood Count/With Diff Urgent
08/11/24 12:57
Acetaminophen [Tylenol] 1,000 mg PO NOW STA
08/11/24 13:22
US Breast Bilateral Ltd WDC Urgent
Reason for Exam: CONCERN FOR POSS ABCESS, LEFT BREAST
08/11/24 14:59
CefTRIAXone [Rocephin] 2,000 mg IV NOW STA
08/11/24 15:12
Vancomycin [Vancocin] 1,250 mg 0.9% Sodium Chloride 250 ml [Nss] 250 ml IV NOW
08/11/24 16:00
Flush (0.9% Sodium Chloride) [Flush (Nss)] See Dose Instructions IV PER PROTOCOL
Abnormal Lab Results
08/11/24
12:21
MCHC 32.5 L g/dL
(33.0-37.0)
Monocytes % 11.0 H %
(1.7-9.3)
08/11/24 12:21
08/11/24 12:21
Vital Signs
Initial and Last Documented VS:
Initial Vital Signs
Temp Pulse Resp BP Pulse Ox
98 F 86 16 141/86 100
08/11/24 10:44 08/11/24 10:44 08/11/24 10:44 08/11/24 10:44 08/11/24 10:44
Last Documented Vital Signs
Temp Pulse Resp BP Pulse Ox
98 F 75 16 110/78 98
08/11/24 10:44 08/11/24 12:15 08/11/24 12:26 08/11/24 12:13 08/11/24 12:15
<Jose Miguel Savage PA-C - Last Filed: 08/11/24 15:49>
MDM/Problems Addressed
Differential Diagnosis Includes:
Patient is a 34-year-old female with past medical history of Crohn's disease, IBS, and migraine disorder, currently approximately 14 weeks, here today with concerns for mastitis with possible breast abscess. Overall, patient appears very
well. Vital signs grossly within normal limits. On examination the patient has mild nonspecific mildly tender faint erythema along the bilateral breast predominantly along the superior region. Along the left upper middle breast at approximately
12:00 there are small palpable tender masses noted. No fluctuance or drainage. No central pustule. Symptoms/findings at this time most concerning for mastitis. There may be the development of an early abscess. Case was discussed with TACTICAL/MOBILE WATCH OFFICER
attending, Dr. Knight who recommends labs and breast imaging.
08/11/2024 1527: Screening labs grossly within normal limits. 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 On the right there is no abscess collection.
Patient made aware of findings. Case was discussed with TACTICAL/MOBILE WATCH OFFICER attending, Dr. Knight who recommends admission to the hospital. She recommends IV antibiotics with ceftriaxone and vancomycin. Will provide. Patient will be admitted to labor and
delivery.
<Jose Miguel Savage PA-C - Last Filed: 08/11/24 15:49>
*Critical Care Note
Total Time (30-74mins, 75-104mins- exclusive of procedures): Not Applicable
ED Attending Note
<Jose Miguel Savage PA-C - Last Filed: 08/11/24 15:49>
-
Portions of this chart may have been created with voice recognition software.� Occasional wrong word or��sound alike� substitutions may have occurred due to the inherent limitations of voice recognition software.
<Og Smith DO - Last Filed: 08/11/24 14:43>
ED Attending Note
Patient seen and examined by attending physician: Yes
I performed the substantive portion of visit, reviewed & personally made and approve the management plan that is documented in note by myself or JUSTIN.: Yes
ED Attending Note:
Seen with PA agree with assessment and plan
Nontoxic 34-year-old sent in by TACTICAL/MOBILE WATCH OFFICER concern for recurrent mastitis, workup noted she is nontoxic care at this point so more or less guided by referring physician
Discharge Plan
Departure
Patient Disposition: Admit
Date of Disposition: 08/11/24
Time of Disposition: 15:04
Admit to: Med/Surg
Admit to doctor: Kimberly Knight
Presentation/result/management discussed w/ accepting MD/DO: Kimberly Knight
Patient with high blood pressure during this ER visit?: No
Condition: Good
Covid-19: Not Applicable
Discharge Problem:
Mastitis
Prescriptions:
No Action
1 tab PO DAILY
dicloxacillin 500 mg Capsule
500 mg PO Q6H
acetaminophen [Tylenol] 325 mg Tablet
650 mg PO Q6HPRN PRN (Reason: mild pain)
tizanidine 2 mg capsule
2 mg PO HSPRN PRN (Reason: muscle spasticity)
oxycodone 10 mg tablet
10 mg PO Q6HPRN PRN (Reason: mod pain)
Referrals:
Porrino,Sylvester., DO [Family Provider] -
Interventions
Interventions:
*Risk Screen - Suicide Last Done: 08/11/24 10:46
*General Assessment Last Done: 08/11/24 12:25
*Neglect/Abuse Screening Last Done: 08/11/24 10:46
*ED COVID-19 Vaccine History Last Done: 08/11/24 12:25
ED- Neurological Assessment Last Done: 08/11/24 12:25
ED-Skin Assessment Last Done: 08/11/24 12:25
Discharge Date and Time
Print Language: HONG KONGER
[2024-08-11 12:13] VITALS: BP 110/78
[2024-08-11 12:32] LABS: % Basophils 0.4 % (0-2); % Eosinophils 2.3 % (0-6); % Immature Granulocytes 0.4 % (0-0.5); % Lymphocytes 34.1 % (20.5-51.1); % Neutrophils 51.8 % (42.2-75.2); Absolute Eosinophils 0.1 10^3/uL (0-0.7); Absolute Lymphocytes 1.9 10^3/uL (1.2-3.4); Absolute Monocytes 0.6 10^3/uL (0.1-0.6); Absolute Neutrophils 2.9 10^3/uL (1.4-6.5); Hematocrit 38.2 % (37.0-47.0); Hemoglobin 12.4 g/dL (12.0-16.0); Mean Corp Hgb Conc. 32.5 g/dL (33.0-37.0); Mean Corpuscular Volume 86.2 fL (81.0-99.0); Mean Platelet Volume 8.5 fL (7.4-10.4); Nucleated Red Blood Cells % 0 %; Platelet Count 268 10^3/uL (130-400); Red Blood Cell Count 4.43 10^6/uL (4.20-5.40); Red Cell Dist. Width 13.6 % (11.5-14.5); White Blood Cell Count 5.6 10^3/uL (4.8-10.8)
[2024-08-11 12:45] LABS: Blood Urea Nitrogen 8 mg/dl (7-17); Calcium 9.4 mg/dl (8.4-10.2); Carbon Dioxide 25 mmol/L (22-30); Chloride 107 mmol/L (98-107); Glucose 72 mg/dl (70-99); Potassium 3.9 mmol/L (3.5-5.1); Sodium 143 mmol/L (135-145); eGFR > 60.00
[2024-08-11 13:00] VITALS: BP 115/63
[2024-08-11] MEDS: TYLENOL 1000 MG PO (13:02)
[2024-08-11 15:57] VITALS: BP 94/62
[2024-08-11] MEDS: VANCOCIN 275 MG IV (15:58)
[2024-08-11] MEDS: ROCEPHIN 2000 MG IV (15:58)
--- NOTE | 2024-08-11 16:36 | HPS.HSE ---
Family Physician
-
Family Physician: Kwasi Beltran
Chief Complaint
-
mastitis
History of Present Illness
Patient is a 34yo s/p RLTCS at 34wks for breech presentation on 05/05 who presents to the ED with complaints of mastitis. She was seen in the office on Wednesday and diagnosed with mastitis of the right breast and was prescribed dicloxacillin.
She started taking it Wednesday night. She says that the area on the right side is improving, but she noticed an area on the left side that was red and felt a hard area and was concerned for an abscess. She says the area on the left breast is
getting worse. She has had low grade temps since starting antibiotics. She did have a temp up to 103 on Wednesday prior to starting antibiotics. She has also had fevers, chills, and breast pain. She says pumping has been very painful but she is
still pumping every 4 hours. She has been taking Tylenol for the fever and pain.
PMHx: Crohn's, anxiety, eczema, kidney stone, migraine
Meds: vitamin
Surghx: CSx2, bowel resection, rectal fistula repair, left salpingectomy for ectopic, tonsillectomy, wisdom teeth
All: bactrim, compazine, maxalt, NSAIDs, remicade, shellfish
Socialhx: denies tobacco, etoh or illicit drug use
Famhx: non-contributory
OBHx: FT CSx1, CS @34wks for PPROM, ectopic x1 w/ L salpintectomy
Breast US:
CLINICAL INDICATION: Left hard lump, right red and painful
FINDINGS:
Ultrasound imaging on the right in the area of pain/redness demonstrates very small fluid collections interspersed within the tissues, likely edema. There is no collection to suggest an abscess.
On the left the palpable hardness is related to a peripheral tubular structure which does not compress and has no flow. There are tubular connecting branches with flow. There is no cyst or solid mass. There is no abscess collection.
IMPRESSION:
1. 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
2. On the right there is no abscess collection
BI-RADS: II - benign
Medical History
Past Medical History
Past Medical History: Reports Other
Additional Past Medical History:
Crohn's, anxiety, eczema, kidney stone, migraine
Past Surgical History: Reports Bowel Resection, and Tonsilectomy
Additional Past Surgical History:
CSx2, bowel resection, rectal fistula repair, left salpingectomy for ectopic, tonsillectomy, wisdom teeth
Social History
Tobacco: Non-smoker
Alcohol: None
Drug: None
Family History
Family History: Not pertinent
Allergies / Home Medications
Allergies reflects when Allergies were last updated in [facility].
Home Medications with original date entered in [facility]
Allergy/Medication List:
Meds: post vitamin
All: bactrim, compazine, maxalt, NSAIDs, remicade, shellfish
Review of Systems
-
A 12 point ROS was completed and negative except as noted: Yes
Physical Exam
Vital Signs
Vital Signs
Temp Pulse Resp BP Pulse Ox
98 F 85 18 94/62 97
08/11/24 10:44 08/11/24 16:05 08/11/24 16:05 08/11/24 15:57 08/11/24 16:05
Physical Exam
General: Well Developed and Well Nourished
HEENT: NormoCephalic
Respiratory: Non Labored Respirations
Cardiac: Regular Rhythm
Breast: Other (right breast with improving area of erythema on upper outer portion, left breast with erythema in the upper outer quadrant, small pea size palpable lump superficial around 12 o'clock, no abscess palpated in either breast)
GI: Soft and Non Tender
Genito-urinary: Deferred by me
Skin: Warm and Dry
Neuro: Awake and Alert
Psych: Calm
Laboratory Results
-
08/11/24 12:21
08/11/24 12:21
Impression/Plan
-
IMPRESSION: Patient is a 34yo who presents with mastitis, failed outpatient treatment
PLAN:
- Breast US with no abscess. 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
- Patient has been afebrile while in the ED with no white count, however she has been taking oral antibiotics for 48 hours and while has had improvement in the right breast, she is now developing an area in the left breast that is worsening over the
last 24 hours. Recommend inpatient admission for IV antibiotics for failed outpatient treatment of mastitis
- Vancomycin and ceftriaxone ordered
- Tylenol and toradol ordered for pain management. Patient is allergic to NSAIDs because of Crohn's disease but has previously tolerated Toradol
- Repeat CBC in AM ordered
--- NOTE | 2024-08-11 16:58 | PHA.VAN.IN ---
Assessment
- Assessment
Renal Function: Appears similar to baseline
Concomitant Antimicrobials: ROCEPHIN
- Previous Dosing Experience
Previous Regimen: NONE
AUC Dosing Plan
- Dosing Variables
Dosing Weight (kg): 81
Dosing CrCl (ml/min): 125
Vd coefficient (L/kg): 0.7
- Empiric Dosing
Initial / Loading Dose: 2GM TOTAL
Maintenance Regimen: 1500MG IV Q12H
Estimated AUC (mcg*h/mL): 529
Estimated Peak (mcg*h/mL): 36.4
Estimated Trough (mcg/ml): 11.7
Estimated Half Life (H): 6.4
Pharmacokinetics Vancomycin I
- -
Patient Age: 34
Patient Sex: Female
Vancomycin Day #: 1
Indication: Skin And Soft Tissue (MASTITIS)
Requesting Provider: JASSI
Pertinent Antimicrobial Allergies:
Allergies
sulfamethoxazole [From Bactrim] Allergy (Verified 07/15/24 09:27)
Hives
trimethoprim [From Bactrim] Allergy (Verified 07/15/24 09:27)
Hives
Height / Weight:
Height 5 ft 7 in
Actual Weight 81 kg
- Vital Signs / Lab Results
Temp Pulse Resp BP Pulse Ox
98 F 85 18 94/62 97
08/11/24 10:44 08/11/24 16:05 08/11/24 16:05 08/11/24 15:57 08/11/24 16:05
Lab Results - Hematology
08/11/24
12:21
WBC 5.6
Lab Results - Chemistry
08/11/24
12:21
BUN 8
Creatinine 0.6
[2024-08-11] MEDS: VANCOCIN 150 IV (17:37)
[2024-08-11] MEDS: TORADOL 15 MG IV (18:16)
--- NOTE | 2024-08-11 18:22 | PTCARENOTE ---
Pt admitted to room 211 via stretecher from ED with bilateral mastitis. Pt received Vancomycin 750 mg IV at 150ml/hr at 1737. Pt received Toradol 15mg IV as ordered for breast discomfort. Pt eating meal at present.
[2024-08-11 18:34] VITALS: BP 108/69
[2024-08-11] MEDS: FLUSH (NSS) 1 FLUSH IV (18:45)
[2024-08-11 20:00] VITALS: BP 109/60
[2024-08-11] MEDS: BENADRYL 25 MG PO (21:16)
--- NOTE | 2024-08-11 22:21 | PTCARENOTE ---
per MD pt does not need SCD rt pt is up ad tj.
[2024-08-12 00:17] VITALS: BP 129/69
[2024-08-12] MEDS: TORADOL 15 MG IV (00:37)
[2024-08-12 03:55] VITALS: BP 115/80
[2024-08-12 04:58] LABS: Hematocrit 37.9 % (37.0-47.0); Hemoglobin 12.1 g/dL (12.0-16.0); Mean Corp Hgb Conc. 31.9 g/dL (33.0-37.0); Mean Corpuscular Hgb 27.7 pg (27.0-31.0); Mean Corpuscular Volume 86.7 fL (81.0-99.0); Mean Platelet Volume 8.4 fL (7.4-10.4); Platelet Count 288 10^3/uL (130-400); Red Blood Cell Count 4.37 10^6/uL (4.20-5.40); Red Cell Dist. Width 13.3 % (11.5-14.5); White Blood Cell Count 5.6 10^3/uL (4.8-10.8)
[2024-08-12] MEDS: VANCOCIN 530 MG IV (06:51)
--- NOTE | 2024-08-12 08:00 | PHA.VAN.FU ---
Vancomycin Assessment / Plan
- Assessment
Renal Function: No New Labs Today
WBC's are: WNL
In the past 24 hrs, patient has been: Afebrile
Concomitant Antimicrobials: ceftriaxone
- Dosing Plan
Continue: 1500mg q12h
- Monitoring Plan
No level(s) ordered at this time: consider next day or two
- Follow Up
Pharmacy will continue to follow.
Vancomycin Follow UP
- -
Patient Age: 34
Patient Sex: Female
Vancomycin Day #: 2
Indication: Skin And Soft Tissue (MASTITIS)
Requesting Provider: JASSI
Pertinent Antimicrobial Allergies:
Allergies
sulfamethoxazole [From Bactrim] Allergy (Verified 07/15/24 09:27)
Hives
trimethoprim [From Bactrim] Allergy (Verified 07/15/24 09:27)
Hives
Height / Weight:
Height 5 ft 7 in
Actual Weight 81 kg
- Vital Signs / Lab Results
Temp Pulse Resp BP Pulse Ox
97.9 F 74 18 115/80 97
08/12/24 03:55 08/12/24 03:55 08/12/24 03:55 08/12/24 03:55 08/11/24 16:05
Lab Results - Hematology
08/11/24 08/12/24
12:21 03:48
WBC 5.6 5.6
Lab Results - Chemistry
08/11/24
12:21
BUN 8
Creatinine 0.6
[2024-08-12] MEDS: PRENATAL PLUS 1 TABLET PO (08:06)
--- NOTE | 2024-08-12 11:37 | PTCARENOTE ---
Pt discharged to home. Pt denies complaints. Discharge instructions, medications, and follow up appointment reviewed with pt. Pt verbalized understanding of all.
--- NOTE | 2024-08-12 12:22 | PTCARENOTE ---
-Arianna is a 34- years old who delivered her second baby at 34 weeks on 04/15 .On 08/11, she was admitted through the ER for Mastitis.Upon admission she presented with a hard lump in the left breast and redness and pain in the right
breast. 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 she was treated with IV antibiotics Vancomycin and Ceftriaxone. Today Arianna report felling so much better and she is being D/C
home. On examination there is not redness on both breast no lump on the right. The left has breast has a small, pea size, superficial palpable lump around the 12 o'clock position,and no redness noted. Arianna is exclusively pumping and she is
dealing with oversupply, pumping about 8 10 oz at session. she pumps every 4 hours for 20 minutes. I encourage Arianna to set a goal to pump for 15 and to make an appointment with a IBCLC outpatient to check her on the oversupplied. Also we
discussed the possibility on checking Flange sizes she was using a 24mm. she will try a 21mm. On her left breast she can applied some heat or ice I reassure Arianna the small lump will resolve with time. She also want to incorporate some
Lecithin , she has used with her first baby for clog duct, and she will star taking it again for a couples of weeks. Ok with MD. Continue to monitor, her self and report any changes.
== END 2024-08-12 11:30 | disposition home or self-care (01) | DRG 601 ==
LOC: LDRP 16:34
PROVIDERS: Physician Assistant; ADMITTING PHYSICIAN Student in an Organized Health Care Education/Training Program; EMERGENCY PHYSICIAN Emergency Medicine; FAMILY PHYSICIAN Family Medicine
DX: N61.0 Mastitis without abscess (principal); G43.909 Migraine, unspecified, not intractable, without status migrainosus; F41.9 Anxiety disorder, unspecified; E05.90 Thyrotoxicosis, unspecified without thyrotoxic crisis or storm; Z88.6 Allergy status to analgesic agent
CPT/HCPCS: 76642; 80048; 85025; 85027; 96365; 96375; 99284

== ENCOUNTER 2024-12-25 06:26 | Day surgery (SDC) | payer OTHER, SELFPAY | END 2024-12-25 16:25 | disposition home or self-care (01) | LOC: GI 06:26 | PROVIDERS: ATTENDING PHYSICIAN Internal Medicine Gastroenterology | DX: R10.84 Generalized abdominal pain (principal); K62.5 Hemorrhage of anus and rectum; K64.0 First degree hemorrhoids; K63.3 Ulcer of intestine; K50.011 Crohn's disease of small intestine with rectal bleeding; R17 Unspecified jaundice; K52.9 Noninfective gastroenteritis and colitis, unspecified | CPT/HCPCS: 45380; 88305 ==

== ENCOUNTER → 2024-12-29 10:09 | Outpatient (REF) | payer OTHER, SELFPAY | LOC: MRI 3T 10:09 | PROVIDERS: ATTENDING PHYSICIAN Internal Medicine Gastroenterology; FAMILY PHYSICIAN Family Medicine | DX: K50.013 Crohn's disease of small intestine with fistula (principal) | CPT/HCPCS: 72197; 74183; A9575 ==

== ENCOUNTER 2025-08-03 06:26 | Day surgery (SDC) | payer OTHER, SELFPAY | END 2025-08-03 09:15 | disposition home or self-care (01) | LOC: GI 06:26 | PROVIDERS: ATTENDING PHYSICIAN Internal Medicine Gastroenterology | DX: K50.00 Crohn's disease of small intestine without complications (principal); K52.9 Noninfective gastroenteritis and colitis, unspecified; K63.3 Ulcer of intestine; K64.9 Unspecified hemorrhoids; Z98.0 Intestinal bypass and anastomosis status | CPT/HCPCS: 45380; 88305; 88342 ==

== ENCOUNTER → 2025-09-05 13:15 | Outpatient (REF) | payer OTHER, SELFPAY | LOC: HWRAD 13:15 | PROVIDERS: ATTENDING PHYSICIAN Obstetrics & Gynecology; FAMILY PHYSICIAN Family Medicine | DX: R10.20 Pelvic and perineal pain unspecified side (principal) | CPT/HCPCS: 76830; 76856 ==